=== PATIENT | male | born 1950 | race Caucasian/White ===

== ENCOUNTER 2016-06-12 16:48 | Emergency (ER) | payer OTHER ==
[~2016-06-12] VITALS: Ht 177.8 cm; Wt 99.7 kg
[~2016-06-12 16:48] MED LIST: LORC10TA PO; SULF-154 PO; SULF1TAB47 PO; Z.0.NO CURRENT MEDS
[2016-06-12 16:52] VITALS: BP 138/95; PULSE 92; RESP 14; TEMP 99; O2SAT 97
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
[2016-06-12] MEDS ORDERED: KETOROLAC TROMETHAMINE 60 MG/2 ML (IM) VIAL IM ONE (17:30)
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
[2016-06-12] MEDS ORDERED: IBUP800T23 PO (20:12)
[2016-06-12] MEDS ORDERED: CYCL1TAB29 PO (20:12)
[2016-06-12 20:17] VITALS: BP 160/92; PULSE 81; RESP 16; O2SAT 96
[2016-06-12] MEDS ORDERED: ACETAMINOPHEN/HYDROcodone 325 MG/5 MG TAB PO ONE (20:30)
[2016-06-12] MEDS ORDERED: ORPHENADRINE INJ 60 MG/2 ML AMP IM ONE (20:30)
== END 2016-06-12 21:07 | disposition home or self-care (01) ==
LOC: PHEFT 16:48
DX: M54.12 Radiculopathy, cervical region (principal); R51 Headache; M79.1 Myalgia; V43.52XA Car driver injured in collision with other type car in traffic accident, initial encounter; Y93.9 Activity, unspecified; Y92.9 Unspecified place or not applicable; Y99.9 Unspecified external cause status
CPT/HCPCS: 72125; 73630; 96372; 99284; J1885; J2360

== ENCOUNTER 2016-06-15 22:54 | Emergency (ER) | payer OTHER ==
[~2016-06-15] VITALS: Ht 177.8 cm; Wt 101.3 kg
[~2016-06-15 22:54] MED LIST changes: +CYCL1TAB29 PO; +IBUP800T23 PO; -LORC10TA PO; -SULF-154 PO; -SULF1TAB47 PO; -Z.0.NO CURRENT MEDS
[2016-06-15 23:06] VITALS: BP 133/95; PULSE 91; RESP 16; TEMP 99; O2SAT 94
[2016-06-15 23:17] VITALS: BP 133/95; PULSE 91; RESP 18; TEMP 99; O2SAT 94
[2016-06-15] MEDS ORDERED: PERC7.5T13 PO (23:29)
[2016-06-15] MEDS ORDERED: oxyCODONE/ACETAMINOPHEN 5 MG/325 MG TAB PO ONE (23:30)
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
[2016-06-16 00:18] VITALS: BP 134/89; PULSE 88; RESP 18; O2SAT 96
== END 2016-06-16 00:23 | disposition home or self-care (01) ==
LOC: PHED 22:54
DX: M54.2 Cervicalgia (principal); T14.8 Other injury of unspecified body region; M79.673 Pain in unspecified foot; V89.2XXA Person injured in unspecified motor-vehicle accident, traffic, initial encounter
CPT/HCPCS: 99283